=== PATIENT | female | born 1940 | race Caucasian/White ===

== ENCOUNTER → 2020-01-22 11:09 | Outpatient (BNVA) | payer MEDICARE, OTHER, SELFPAY | PROVIDERS: Family Provider Internal Medicine; PCP Internal Medicine; Visit Provider Urology | DX: N20.0 Calculus of kidney (principal) | CPT/HCPCS: 80048; 81003; 82131; 82140; 82340; 82436; 82507; 82570; 83735; 83935; 84100; 84300; 84550 ==

== ENCOUNTER 2021-05-12 08:42 | Outpatient (CLI) | payer MEDICARE, OTHER, SELFPAY ==
--- NOTE | 2021-05-12 09:00 | XR_ITS ---
WS: [id number] KUB, AP view, 05/12/2021 Clinical Data: UROLITHIASIS Comparison: KUB, 10/09/2019. Findings: No abnormal intraabdominal masses are seen. There is no dilatated small bowel or evidence of obstruct ion. There is a 0.7 cm calcification overlying the inferior pole of the left kidney which could be a renal calculus. There are probable fallopian tube calcifications in the true pelvis. There is a dextroscol iosis with osteoarthritic change. There are calcifications overlying the spleen. XR/XR KUB [id number] Impression: Possible left renal calcification.
== END 2021-05-12 08:43 | disposition home or self-care (01) ==
LOC: RAD 08:48
PROVIDERS: PCP Internal Medicine; Visit Provider Urology
DX: N20.9 Urinary calculus, unspecified (principal)
CPT/HCPCS: 74018; 81003

== ENCOUNTER 2021-06-22 07:21 | Outpatient (CLI) | payer MEDICARE, OTHER, SELFPAY ==
--- NOTE | 2021-06-22 07:30 | XR_ITS ---
WS: [id number] KUB, AP view, 06/22/2021 today Clinical Data: UROLITHIASIS Comparison: KUB, 05/12/2021 Findings: No abnormal intraabdominal masses are seen. There is no dilatated small bowel or evidence of obstruct ion. The 0.7 cm calcification overlying the left kidney remains the same. There are phleboliths in the venus e pelvis. There is a dextroscoliosis with osteoarthritis of the lumbar spine. There is a large amount of fecal material in colon gas. XR/XR KUB [id number] Impression: No change in probable left renal calcification.
== END 2021-06-22 07:22 | disposition home or self-care (01) ==
PROVIDERS: PCP Internal Medicine; Visit Provider Urology
DX: N20.9 Urinary calculus, unspecified (principal)
CPT/HCPCS: 74018; 81003

== ENCOUNTER 2021-10-26 13:50 | Outpatient (CLI) | payer MEDICARE, OTHER, SELFPAY ==
--- NOTE | 2021-10-26 14:00 | XR_ITS ---
WS: [id number] Exam: XR KUB [id number] Date/Time of Exam: 10/26/2021 1:58 PM Reason For Exam: UROLITHIASIS Comparison 06/22/2021. 6 mm calcification superimposes the left kidney and apparently represents a known renal stone. No bow el obstruction or free air. No sign of organ enlargement. Moderate degenerative change of the lumbar spine and dextroscoliosis. Moderate amount of stool in the colon. XR/XR KUB [id number] IMPRESSION: 1. 6 mm calcification superimposing the left kidney apparently representing a k nown renal stone. 2. Constipation. No acute abdominal process.
== END 2021-10-26 13:51 | disposition home or self-care (01) ==
LOC: RAD 13:52
PROVIDERS: PCP Internal Medicine; Visit Provider Urology
DX: N20.0 Calculus of kidney (principal); K59.00 Constipation, unspecified
CPT/HCPCS: 74018; 81003

== ENCOUNTER 2022-06-21 08:13 | Outpatient (CLI) | payer MEDICARE, OTHER, SELFPAY ==
--- NOTE | 2022-06-21 09:30 | MM_ITS ---
WS: [id number] BILATERAL SCREENING DIGITAL BREAST TOMOSYNTHESIS MAMMOGRAM WITH CAD HISTORY: SCREENING COMPARISON: 12/05/2019 and 09/13/2018 Bilateral CC and MLO views with tomosynthesis and synthetic mammography submitted. Computer aided det ection analyzed. Breast composition: The breasts are heterogeneously dense, which may obscure small masses. No suspici ous masses, microcalcifications or architectural distortion. Scattered calcifications within each maxine ast. Fibroglandular densities are stable within the anterior breast. MM/[place] [id number] IMPRESSION: BI-RADS: 2-Benign FOLLOW UP: 1 Year Follow-up
== END 2022-06-21 08:14 | disposition home or self-care (01) ==
LOC: RAD 08:14
PROVIDERS: PCP Internal Medicine; Visit Provider Internal Medicine
DX: Z12.31 Encounter for screening mammogram for malignant neoplasm of breast (principal)
CPT/HCPCS: 77063; 77067

== ENCOUNTER 2022-07-26 08:39 | Outpatient (CLI) | payer MEDICARE, OTHER, SELFPAY ==
--- NOTE | 2022-07-26 08:51 | XRR_ITS ---
PROCEDURE INFORMATION: Exam: XR Abdomen Exam date and time: 07/26/2022 8:51 AM Age: 81 years old Clinical indication: Condition or disease; Kidney or ureter condition; Calculus (stone) in ureter; Additional info: N20.9 - urinary calculus, unspecified, kub@8:30 appt to follow TECHNIQUE: Imaging protocol: Radiologic exam of the abdomen. Views: Frontal supine view of the abdomen. 1 View. COMPARISON: CR XR KUB [id number] 10/26/2021 2:03 PM FINDINGS: Gastrointestinal tract: There is a non-obstructive bowel gas pattern. There is no abnormal dilatation of bowel loops. Some gas and fecal material is seen throughout the colon, suggestive of mild to moderate constipation. There is no pneumatosis or mass effect. There is no organomegaly. Intraperitoneal space: No definite free air on the supine view exam. Bones/joints: There are no acute osseous abnormalities noted. Mild dextroconvex rotoscoliosis of the mid lumbar spine is seen with moderate degenerative disc disease and facet disease changes. Soft tissues: Interval increased size of the left kidney lower pole region calculus, now measuring 8-9 mm. Other findings: The XR/XR KUB [id number] IMPRESSION: Left kidney lower pole calculus, which appears to be increased in size, as noted above.
== END 2022-07-26 08:40 | disposition home or self-care (01) ==
LOC: RAD 08:41
PROVIDERS: PCP Internal Medicine; Visit Provider Urology
DX: N20.9 Urinary calculus, unspecified (principal); N30.20 Other chronic cystitis without hematuria
CPT/HCPCS: 74018; 81003; 99213

== ENCOUNTER 2023-03-02 08:28 | Emergency (ER) | payer MEDICARE, OTHER, SELFPAY ==
[2023-03-02 08:39] VITALS: BP 123/68; PULSE 63; RESP 14; O2SAT 92; BMI 26.4
--- NOTE | 2023-03-02 09:24 | XRR_ITS ---
PROCEDURE INFORMATION: Exam: XR Right Hip Exam date and time: 03/02/2023 9:32 AM Age: 82 years old Clinical indication: Injury or trauma; Fall; Blunt trauma (contusions or hematomas); Right; Injury details: Fell about a week ago, pain in ribs and bruised hip TECHNIQUE: Imaging protocol: Radiologic exam of the right hip. Views: 1 view hip with pelvis when performed. COMPARISON: CT kidney stone [id number] 10/05/2019 12:52 AM FINDINGS: Bones/joints: No acute fracture or dislocation. There is mild degenerative changes of the hip joints, manifested by small periarticular osteophytes. Degenerative changes of the included lower lumbar spine seen. Soft tissues: Unremarkable. XR/XR hip RT 2-3V wo/w pel* [id number] IMPRESSION: No acute injury.
--- NOTE | 2023-03-02 09:24 | XRR_ITS ---
PROCEDURE INFORMATION: Exam: XR Right Ribs with PA Chest Exam date and time: 03/02/2023 9:32 AM Age: 82 years old Clinical indication: Injury or trauma; Fall; Rib area; Blunt trauma (contusions or hematomas); Injury details: Fell about a week ago, pain in ribs and bruised hip TECHNIQUE: Imaging protocol: Radiologic exam of the right ribs with PA chest. Views: 3 views COMPARISON: CR XR chest 1V [id number] 02/25/2019 8:58 PM FINDINGS: Lungs: Unremarkable. No consolidation. Pleural spaces: Unremarkable. No pleural effusion. No pneumothorax. Heart/Mediastinum: Unremarkable. No cardiomegaly. Bones/joints: Mild S-shaped curvature of the spine and multilevel degenerative changes seen. There is a mildly displaced fracture of the right anterolateral 7th rib. XR/XR ribs RT mn 3V w CXR1V [id number] IMPRESSION: Mildly displaced fracture of the right anterolateral 7th rib.
--- NOTE | 2023-03-02 09:31 | ED_ITS ---
HPI - Fall General: Chief Complaint: Fall Stated Complaint: fall, rib pain right side Time Seen by Provider: 03/02/23 08:39 Source: patient Mode of arrival: ambulatory History of Present Illness: 82-year-old female presents emergency room with complaints of right rib pain and right hip pain after a mechanical ground-level fall. She fell 1 week ago outside when she stumbled in the dark she landed on her right hip and her right ribs she has pain and discomfort with deep inspiration she has been ambulatory since then. 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 She has not had any hemoptysis. There is no loss of consciousness she still some mild right hip pain but has been ambulating without difficulty. Pain in the chest is worse was deep inspiration and movement such as sitting up on the exam table. Onset (ago): week(s) (1) Fall from: standing Fall witnessed: yes, by family Place fall occurred: home Loss of consciousness: None Prolonged down time: no Context: tripped/slipped Location of injury: chest Location of injury - extremities: Right: thigh (Right hip) Severity: moderate Associated symptoms-after fall: Denies abdominal pain, chest pain, confusion, difficulty walking, headache(s), hematuria, lightheadedness, neck pain, numbness, short of breath, vertigo or weakness Review of Systems Const: Denies: fever(s), chills, body aches, change in appetite, fatigue or malaise ENMT: Denies: throat pain, ear or mastoid pain, nasal discharge or nasal congestion Card: Denies: chest pain or lightheadedness Resp: Denies: dyspnea, productive cough or non-productive cough GI: Denies: abdominal pain : Denies: flank pain, dysuria, urinary frequency, urinary urgency or hematuria Musc: Denies: neck pain Skin/Breast: Denies: rash or pruritus Neuro: Denies: headache(s), difficulty walking, vertigo or confusion PFSH ED PFSH: Medical History Chronic cystitis History of DVT (deep vein thrombosis) Hypercholesterolemia Hyperoxaluria (primary) Hypertension Urolithiasis Surgical History History of back surgery History of tonsillectomy Family History Mother , at age 87 Staph infection Father , at age 90 Stroke Other Dementia Social History Smoking and tobacco status: never smoked Alcohol intake: never Adopted: No Caregiver/support person: No Lives independently: No Household members: spouse Marital status: Current occupational status: retired Current occupation: Retired Current gender identity: Female Physical Exam Const: GENERAL APPEARANCE: cooperative and comfortable ORIENTATION/CONSCIOUSNESS: Yes awake, Yes oriented to person, Yes oriented to place and Yes oriented to time HENMT: COMMON NORMALS: normocephalic, atraumatic and hearing grossly normal bilaterally HEAD & SCALP: normocephalic and atraumatic Resp: COMMON NORMALS: normal respiratory effort, No retractions, No use of accessory muscles and clear to auscultation bilaterally AUSCULTATION: clear to auscultation bilaterally Cardio: COMMON NORMALS: regular rate, regular rhythm and No murmurs present (Cardio) RATE: regular rate RHYTHM: regular rhythm GI: COMMON NORMALS: Soft to palpation and No hepatosplenomegaly present AUSCULTATION: Yes normoactive bowel sounds PALPATION: Yes Soft to palpation, No Tenderness to palpation present (GI), No Guarding due to palpation present (GI) and Yes No hepatosplenomegaly present Extremity: COMMON NORMALS: normal to inspection, capillary refill normal, no clubbing, cyanosis or edema, no calf tenderness and no pedal edema Neuro: SENSORIUM/ORIENTATION: Yes oriented to person, Yes oriented to place and Yes oriented to time Skin: COMMON NORMALS: no rashes or lesions noted GENERAL SKIN EXAM: no rashes or lesions noted Course Vital Signs: Vital signs: Vital Signs Pulse Rate 58 L 03/02/23 12:01 Respiratory Rate 16 03/02/23 12:01 Blood Pressure 123/68 03/02/23 12:01 Pulse Oximetry 95 03/02/23 12:01 Oxygen Delivery Me thod Room Air 03/02/23 09:35 MDM - Fall Medical Decision Making Right seventh rib fracture no sign of pneumothorax Labs otherwise reviewed hip x-rays normal range of motion the hip is normal. Pain medications given advised ice. He can follow-up with his primary care doctor as needed no other significant injuries found. Medical Records I reviewed the patient's medical records. Lab Data I reviewed the patient's lab results. 03/02/23 09:59 03/02/23 09:59 Radiology Impressions Hip/Pelvis X-Ray 03/02/23 09:24 IMPRESSION: No acute injury. Ribs X-Ray 03/02/23 09:24 IMPRESSION: Mildly displaced fracture of the right anterolateral 7th rib. Laboratory Results WBC 6.9 10^3/uL (4.0-10.0) 03/02/23 09:59 RBC 4.62 10^6/uL (4.1-5.3) 03/02/23 09:59 Hgb 13.0 g/dL (11.5-15.3) 03/02/23 09:59 Hct 41.1 % (37.0-47.0) 03/02/23 09:59 MCV 89.0 fl (81-99) 03/02/23 09:59 MCH 28.1 pg (28.0-34.0) 03/02/23 09:59 MCHC 31.6 g/dL (30.0-36.0) 03/02/23 09:59 RDW 14.6 % (12.1-15.1) 03/02/23 09:59 Plt Count 159 10^3/cmm (130-400) 03/02/23 09:59 MPV 10.3 fL (7.4-10.4) 03/02/23 09:59 Neut % (Auto) 74.3 % 03/02/23 09:59 Lymph % (Auto) 13.8 % 03/02/23 09:59 [place] % (Auto) 8.6 % 03/02/23 09:59 Eos % (Auto) 2.6 % 03/02/23 09:59 Baso % (Auto) 0.6 % 03/02/23 09:59 Neut # (Auto) 5.10 10^3/uL (1.8-7.7) 03/02/23 09:59 Lymph # (Auto) 1.0 10^3/uL (0.8-4.8) 03/02/23 09:59 [place] # (Auto) 0.6 10^3/uL (0.2-0.9) 03/02/23 09:59 Eos # (Auto) 0.2 10^3/uL (0.0-0.8) 03/02/23 09:59 Baso # (Auto) 0.0 10^3/uL (0.0-0.1) 03/02/23 09:59 Nucleated RBC % (auto) 0 % 03/02/23 09:59 Nucleated RBCs # 0.0 /100WBC 03/02/23 09:59 PT 33.10 SECONDS (12.1-14.9) H 03/02/23 09:59 INR 3.09 (0.8-1.2) H 03/02/23 09:59 Sodium 140 mmol/L (136-145) 03/02/23 09:59 Potassium 4.6 mmol/L (3.5-5.1) 03/02/23 09:59 Chloride 106 mmol/L (98-107) 03/02/23 09:59 Carbon Dioxide 25 mmol/L (22-29) 03/02/23 09:59 Anion Gap 13.6 (5-19) 03/02/23 09:59 BUN 15 mg/dL (8-23) 03/02/23 09:59 Creatinine 0.7 mg/dL (0.5-0.9) 03/02/23 09:59 GFR Calculation Not Reportable 03/02/23 09:59 Glucose 98 mg/dL (65-115) 03/02/23 09:59 Calculated Osmolality 291 mOsm/kg (285-295) 03/02/23 09:59 Calcium 9.4 mg/dL (8.5-10.5) 03/02/23 09:59 Total Bilirubin 0.5 mg/dL (0.15-1.2) 03/02/23 09:59 AST 26 U/L (0-32) 03/02/23 09:59 ALT 28 U/L (0-33) 03/02/23 09:59 Alkaline Phosphatase 47 U/L (35-105) 03/02/23 09:59 Total Protein 7.1 g/dL (6.6-8.7) 03/02/23 09:59 Albumin 4.0 g/dL (3.5-5.2) 03/02/23 09:59 Globulin 3.1 g/dL (1.3-4.6) 03/02/23 09:59 Urine Color Yellow (Yellow) 03/02/23 10:16 Urine Appearance Clear (CLEAR) 03/02/23 10:16 Urine pH 6 (5-7) 03/02/23 10:16 Ur Specific [place] 1.015 (1.005-1.030) 03/02/23 10:16 Urine Protein Neg (Negative) 03/02/23 10:16 Urine Glucose (UA) Norm (Normal) 03/02/23 10:16 Urine Ketones Negative (Negative) 03/02/23 10:16 Urine Blood 2+ (Negative) H 03/02/23 10:16 Urine Nitrate Negative (Negative) 03/02/23 10:16 Urine Bilirubin Neg (Negative) 03/02/23 10:16 Urine Urobilinogen Neg mg/dL (Negative) 03/02/23 10:16 Ur Leukocyte Esterase Negative (Negative) 03/02/23 10:16 Urine RBC 0-4 /hpf (0-2) H 03/02/23 10:16 Urine WBC 0-4 /hpf (0-5) H 03/02/23 10:16 Ur Squamous Epith Cells 0-4 /hpf (0-5) H 03/02/23 10:16 Amorphous Sediment Not Reportable 03/02/23 10:16 Urine Bacteria None /hpf (NONE) 03/02/23 10:16 Urine Mucus Trace /hpf 03/02/23 10:16 Discharge Plan Discharge Patient Disposition: Home Clinical Impression: Right rib fracture Condition: Stable Prescriptions: New hydrocodone-acetaminophen 5-325 mg tablet 1 tab PO Q6H PRN (Reason: pain) Qty: 15 0RF No Action losartan 100 mg tablet 100 mg PO BEDTIME amlodipine 5 mg tablet 5 mg PO BEDTIME carvedilol 12.5 mg tablet 12.5 mg PO BID fluticasone propionate 220 mcg/actuation HFA aerosol inhaler 1 puff INHALATION Q12H PRN (Reason: unknown) cetirizine [Zyrtec] 10 mg tablet 10 mg PO DAILY PRN (Reason: Allergy Symptoms) ICaps AREDS [phone] [id number] capsule 1 cap PO BID Vitamin C 1,000 mg Tablet 1,000 mg PO BEDTIME ketoconazole 2 % shampoo See Rx Instructions .ROUTE .COMPLEX Rx Instructions: as directed topically 2-3 times a week as directed warfarin 5 mg tablet See Rx Instructions .ROUTE .COMPLEX Rx Instructions: 5mg po three nights a week (tues,thurs,and sun) and 7.5mg po four nights a week (mon,wed,fri,sat) dorzolamide 2 % drops 1 drp ophthalmic (eye) BID rosuvastatin 40 mg tablet 40 mg PO BEDTIME methenamine hippurate 1 gram tablet 1 g PO BEDTIME Discharge Orders: Discharge ED (Routine); Ordered 03/02/23 Ordered By: Isidoro Ortiz Referrals: To Burr MD [Primary Care Provider] - Discharge Diet: Usual diet Discharge Activity: Increase activity as tolerated Patient Instructions: Opioid Safety, Pain Management Activity Restrictions/Additional Instructions: You were seen today 1 week after a fall. You have a right seventh rib posterior fracture. There is no evidence of pneumothorax. The pain is likely worsen some because of the Coumadin you are on which will increase bleeding. The rest of your vital signs are normal as are your labs x-ray your hip was negative. You were given pain medications recommend ice to the area as well follow-up with primary care doctor return if you have any worsening problems. Coding Level of Care Code ED Assistant Offset Press Operator for [employer]
[2023-03-02 09:35] VITALS: BP 123/68; PULSE 58; RESP 16; O2SAT 95
[2023-03-02 10:05] LABS: Basophils % 0.6 %; Eosinophils # 0.2 10^3/uL (0.0-0.8); Eosinophils % 2.6 %; Hematocrit 41.1 % (37.0-47.0); Lymphocytes % 13.8 %; Mean Corpuscular HGB Conc 31.6 g/dL (30.0-36.0); Mean Corpuscular Hemoglobin 28.1 pg (28.0-34.0); Mean Platelet Volume 10.3 fL (7.4-10.4); Monocytes # 0.6 10^3/uL (0.2-0.9); Monocytes % 8.6 %; Neutrophils % 74.3 %; Nucleated Red Blood Cells % 0 %; Platelet Count 159 10^3/cmm (130-400); Red Blood Count 4.62 10^6/uL (4.1-5.3); Red Cell Distribution Width 14.6 % (12.1-15.1); White Blood Count 6.9 10^3/uL (4.0-10.0)
[2023-03-02 10:16] LABS: INR 3.09 (0.8-1.2)
[2023-03-02 10:21] LABS: Alanine Aminotransferase 28 U/L (0-33); Alkaline Phosphatase 47 U/L (35-105); Anion Gap 13.6 (5-19); Aspartate Amino Transferase 26 U/L (0-32); Blood Urea Nitrogen 15 mg/dL (8-23); Calcium 9.4 mg/dL (8.5-10.5); Carbon Dioxide 25 mmol/L (22-29); Chloride 106 mmol/L (98-107); Globulin 3.1 g/dL (1.3-4.6); Glucose 98 mg/dL (65-115); Osmolality Calculated 291 mOsm/kg (285-295); Potassium 4.6 mmol/L (3.5-5.1); Sodium 140 mmol/L (136-145); Total Bilirubin 0.5 mg/dL (0.15-1.2); Total Protein 7.1 g/dL (6.6-8.7)
[2023-03-02 10:35] LABS: Add Urine Microscopic? YES; Bilirubin Urine Neg (Negative); Blood Urine 2+ (Negative); Glucose Urine UA Norm (Normal); Ketones Urine Negative (Negative); Leukocyte Esterase Urine Negative (Negative); Nitrate Urine Negative (Negative); Protein Urine Neg (Negative); Specific Gravity, Urine 1.015 (1.005-1.030); Urine Appearance Clear (CLEAR); Urine Color Yellow (Yellow); Urobilinogen Urine Neg (Negative); pH Urine 6 (5-7)
[2023-03-02 10:43] LABS: Mucus Urine TRACE /hpf; RBC Urine 0-4 /hpf (0-2); Squamous Epithelial Cell Urine 0-4 /hpf (0-5); WBC Urine 0-4 /hpf (0-5)
[2023-03-02 12:01] VITALS: BP 123/68; PULSE 58; RESP 16; O2SAT 95
== END 2023-03-02 12:03 | disposition home or self-care (01) ==
PROVIDERS: Emergency Provider Family Medicine; PCP Internal Medicine
DX: S22.31XA Fracture of one rib, right side, initial encounter for closed fracture (principal); Z79.01 Long term (current) use of anticoagulants; I10 Essential (primary) hypertension; W01.0XXA Fall on same level from slipping, tripping and stumbling without subsequent striking against object, initial encounter
CPT/HCPCS: 36415; 71101; 73502; 80053; 81001; 85025; 85610; 99284

== ENCOUNTER 2023-12-12 06:00 | Outpatient (RCR) | payer MEDICARE, OTHER, SELFPAY | END 2023-12-20 23:59 | disposition home or self-care (01) | LOC: TPT 06:00 | PROVIDERS: Visit Provider Nurse Practitioner Family | DX: M47.816 Spondylosis without myelopathy or radiculopathy, lumbar region (principal); Z98.890 Other specified postprocedural states | CPT/HCPCS: 97110; 97162 ==

== ENCOUNTER 2023-12-21 06:00 | Outpatient (RCR) | payer MEDICARE, OTHER, SELFPAY | END 2024-01-18 23:59 | disposition home or self-care (01) | LOC: TPT 06:00 | PROVIDERS: Visit Provider Nurse Practitioner Family | DX: M47.816 Spondylosis without myelopathy or radiculopathy, lumbar region (principal) | CPT/HCPCS: 97110 ==

== ENCOUNTER 2024-01-19 06:00 | Outpatient (RCR) | payer MEDICARE, OTHER, SELFPAY | END 2024-01-31 23:59 | disposition home or self-care (01) | LOC: TPT 06:00 | PROVIDERS: Visit Provider Nurse Practitioner Family | DX: M47.816 Spondylosis without myelopathy or radiculopathy, lumbar region (principal) | CPT/HCPCS: 97110 ==